=== PATIENT | male | born 1995 | race Caucasian/White ===

== ENCOUNTER 2022-04-20 13:06 | Emergency (ER) | payer BC, MEDICAID ==
[~2022-04-20] VITALS: Ht 175.3 cm; Wt 175.0 kg
[2022-04-20] MEDS ORDERED: AMOX-494 MT (14:07)
[2022-04-20 14:22] VITALS: BP 137/85
== END 2022-04-20 14:23 | disposition home or self-care (01) ==
LOC: ER 13:06
DX: H66.91 Otitis media, unspecified, right ear (principal); E78.00 Pure hypercholesterolemia, unspecified
CPT/HCPCS: 99283

== ENCOUNTER 2023-02-07 10:52 | Emergency (ER) | payer MEDICAID ==
[~2023-02-07] VITALS: Ht 177.8 cm; Wt 150.0 kg
[~2023-02-07 10:52] MED LIST: AMOX-494 MT
[2023-02-07 11:05] VITALS: TEMP 98.3; O2SAT 97
[2023-02-07] MEDS ORDERED: KETOROLAC 30MG/ML VIAL IM ONE (12:00)
[2023-02-07 13:49] VITALS: BP 158/102; PULSE 82; RESP 19
[2023-02-07] MEDS ORDERED: KETOROLAC 30MG/ML VIAL IM NR (14:00)
== END 2023-02-07 14:43 | disposition home or self-care (01) ==
LOC: ER 10:52
DX: N50.3 Cyst of epididymis (principal); J45.909 Unspecified asthma, uncomplicated; E78.00 Pure hypercholesterolemia, unspecified; Z98.890 Other specified postprocedural states
CPT/HCPCS: 93976; 76870; 96372; 99285; J1885; Z7610

== ENCOUNTER 2024-08-29 11:24 | Emergency (ER) | payer MEDICAID, OTHER ==
[~2024-08-29] VITALS: Ht 175.3 cm; Wt 195.0 kg
[2024-08-29 11:30] VITALS: O2SAT 98
[2024-08-29] MEDS: IBUPROFEN 600MG TABLET PO STA (14:20)
[2024-08-29 14:44] LABS: BASOPHILS % 1.2 % (0.0-2.0); EOSINOPHILS % 0.9 % (0.0-5.0); HEMATOCRIT. 49.5 % (42.0-52.0); HEMOGLOBIN. 16.4 g/dL (14.0-18.0); LYMPHOCYTES % 32.3 % (20.0-50.0); MEAN CORPUSCULAR HEMOGLOBIN 29.3 pg (28.0-32.0); MEAN CORPUSCULAR HGB CONC 33.1 g/dL (31.0-37.0); MEAN CORPUSCULAR VOLUME 88.5 fL (80.0-94.0); MEAN PLATELET VOLUME 9.5 fl (7.4-10.4); MONOCYTES % 5.2 % (2.0-8.0); NEUTROPHILS % 60.4 % (40.0-76.0); PLATELET 270 x1000/uL (130-400); RED BLOOD CELL COUNT 5.59 mill/uL (4.7-6.1); RED CELL DISTRIBUTION WIDTH 14.3 % (11.6-14.6); WHITE BLOOD COUNT 11.1 x1000/uL (4.5-11.0)
[2024-08-29 14:49] LABS: CHLORIDE 107 mEq/L (98-107); POTASSIUM 4.2 mEq/L (3.5-5.1); SODIUM 140 mEq/L (136-145)
[2024-08-29 14:50] LABS: CALCIUM 9.2 mg/dL (8.7-10.4); CARBON DIOXIDE 28 mEq/L (21-32)
[2024-08-29 14:55] LABS: CREATININE 0.8 mg/dL (0.6-1.3); GLUCOSE 98 mg/dL (70-105)
[2024-08-29 14:56] LABS: UREA NITROGEN BLOOD 9 mg/dL (9-23)
[2024-08-29 14:57] LABS: ALANINE AMINOTRANSFERASE 75 IU/L (10-49); ALBUMIN 4.5 g/dL (3.2-4.8); ASPARTATE AMINOTRANSFERASE 36 IU/L (<34)
[2024-08-29 14:58] LABS: BILIRUBIN DIRECT 0.3 mg/dL (<=3.0); PROTEIN TOTAL 7.6 g/dL (6.0-8.3)
[2024-08-29 15:03] LABS: TROPONIN I HIGH SENSITIVITY < 4 ng/L (3.0-53)
[2024-08-29] MEDS ORDERED: NAPR220C61 MT (15:20)
[2024-08-29 16:00] VITALS: BP 129/84; PULSE 75; RESP 18; TEMP 36.9; O2SAT 97
== END 2024-08-29 16:00 | disposition home or self-care (01) ==
LOC: ER 11:24
DX: M54.6 Pain in thoracic spine (principal); E78.00 Pure hypercholesterolemia, unspecified; J45.909 Unspecified asthma, uncomplicated; E66.01 Morbid (severe) obesity due to excess calories; Z98.890 Other specified postprocedural states
CPT/HCPCS: 36415; 71045; 80048; 80076; 84484; 85025; 85379; 93005; 99285